=== PATIENT | female | born 1975 | race Two or more races ===

== ENCOUNTER 2017-04-27 01:10 | Emergency (ER) | payer MEDICAID ==
[~2017-04-27] VITALS: Ht 154.9 cm; Wt 67.6 kg
[2017-04-27 01:08] VITALS: BP 118/82
[~2017-04-27 01:10] MED LIST: ALBUTEROL SULF8.5 GM INH; ALBUTEROL SULFAT2 MG PO; PREDNISONE20 MG ORAL
--- NOTE | 2017-04-27 01:29 | Emergency Room Report ---
History of Present Illness General Chief Complaint: Asthma Source: Patient, EMS Present Illness HPI Patient presents with shortness of breath. This has been worsening now for 3 days. She's been using her inhaler but it hasn't been helping. She was admitted to the hospital in the past 2 months. At that time she received a flu shot. She's been coughing up clear material. She vomited tonight and it appeared to have some yellowish colored phlegm. She does not take prednisone at this time but she has taken it in the past. When she was hospitalized she also got magnesium and steroids. She feels she's not as bad as when she was hospitalized. She denies pain. Paramedics state she was severe when they arrived, but is getting better with Albuterol in the field. LNMP 2 weeks ago. No dysuria, nausea, rashes, headache, sore throat. No change in her bowels. Allergies: Coded Allergies: NO KNOWN DRUG ALLERGIES (Unverified Allergy, Unknown, 11/06/13) Patient History Past Medical History: see triage record Social History: Denies: smoking Social History Narrative works at [employer] Now: No Reviewed Nursing Documentation: PMH: Agreed, PSxH: Agreed Nursing Documentation-PMH Past Medical History: No History, Except For Hx Asthma: Yes Review of Systems All Other Systems: negative except mentioned in HPI Physical Exam Vital Signs Date Time Temp Pulse Resp B/P (MAP) Pulse Ox O2 Delivery O2 Flow Rate FiO2 04/27/17 01:04 97.9 78 19 118/82 99 Room Air Sp02 EP Interpretation: reviewed, normal General Appearance: GCS 15, non-toxic, mild distress Head: normocephalic Eyes: bilateral eye normal inspection, bilateral eye PERRL ENT: moist mucus membranes Neck: supple Respiratory: wheezing, expiration, inspiration Cardiovascular #1: regular rate, rhythm Cardiovascular #2: 2+ radial (R) Gastrointestinal: normal inspection, normal bowel sounds, non tender, decreased bowel sounds Musculoskeletal: normal inspection, normal range of motion, no calf tenderness Neurologic: alert, oriented x3, grossly normal Psychiatric: mood/affect normal Skin: normal inspection, warm/dry Medical Decision Making Diagnostic Impression: Primary Impression: Asthma Qualified Codes: J45.51 - Severe persistent asthma with (acute) exacerbation Additional Impressions: UTI (urinary tract infection) Qualified Codes: N30.00 - Acute cystitis without hematuria Eosinophilia Hypocalcemia Hypokalemia ER Course Patient presents with worsening of her asthma. It's been going on for 3 days. Is not her worse attack. She does feel that she needs steroids. She denies any fevers. Evaluation will be with chest x-ray and labs. She'll be treated with solu Medrol, Magnesium and breathing treatments. Improved with treatment. Calcium low. No prior h/o low calcium. Ordered ionized calcium. (Unable to perform.) No signs of low calcium. Slightly low potassium. + eosinophilia. Pyuria Antibiotics begun for UTI. Clear. She states she feels well enough to be treated at home. Patient stable for outpatient observation and treatment. Laboratory Tests Test 04/27/17 01:33 White Blood Count 7.5 K/UL (4.8-10.8) Red Blood Count 4.12 M/UL (4.20-5.40) L Hemoglobin 12.0 G/DL (12.0-16.0) Hematocrit 36.8 % (37.0-47.0) L Mean Corpuscular Volume 89 FL (80-99) Mean Corpuscular Hemoglobin 29.1 PG (27.0-31.0) Mean Corpuscular Hemoglobin Concent 32.5 G/DL (32.0-36.0) Red Cell Distribution Width 14.4 % (11.6-14.8) Platelet Count 251 K/UL (150-450) Mean Platelet Volume 7.7 FL (6.5-10.1) Neutrophils (%) (Auto) 53.7 % (45.0-75.0) Lymphocytes (%) (Auto) 29.1 % (20.0-45.0) Monocytes (%) (Auto) 5.7 % (1.0-10.0) Eosinophils (%) (Auto) 10.5 % (0.0-3.0) H Basophils (%) (Auto) 0.9 % (0.0-2.0) Urine Color Yellow Urine Appearance Slightly cloudy Urine pH 5 (4.5-8.0) Urine Specific Welches 1.030 (1.005-1.035) Urine Protein 1+ (NEGATIVE) H Urine Glucose (UA) Negative (NEGATIVE) Urine Ketones 2+ (NEGATIVE) H Urine Occult Blood 5+ (NEGATIVE) H Urine Nitrite Negative (NEGATIVE) Urine Bilirubin Negative (NEGATIVE) Urine Urobilinogen Normal MG/DL (0.0-1.0) Urine Leukocyte Esterase 3+ (NEGATIVE) H Urine RBC 30-40 /HPF (0 - 2) H Urine WBC 40-60 /HPF (0 - 2) H Urine Squamous Epithelial Cells Many /LPF (NONE/OCC) H Urine Bacteria Few /HPF (NONE) Urine HCG, Qualitative Negative Sodium Level 140 MMOL/L (136-145) Potassium Level 3.2 MMOL/L (3.5-5.1) L Chloride Level 107 MMOL/L (98-107) Carbon Dioxide Level 22 MMOL/L (21-32) Anion Gap 11 mmol/L (5-15) Blood Urea Nitrogen 19 mg/dL (7-18) H Creatinine 0.6 MG/DL (0.55-1.30) Estimate Glomerular Filtration Rate > 60 mL/min (>60) Glucose Level 126 MG/DL (74-106) H Calcium Level 7.7 MG/DL (8.5-10.1) L Magnesium Level 2.0 MG/DL (1.8-2.4) Total Bilirubin 0.3 MG/DL (0.2-1.0) Aspartate Amino Transferase (AST) 21 U/L (15-37) Alanine Aminotransferase (ALT) 18 U/L (12-78) Alkaline Phosphatase 93 U/L (46-116) Total Creatine Kinase 118 U/L (26-308) Total Protein 7.9 G/DL (6.4-8.2) Albumin 3.6 G/DL (3.4-5.0) Globulin 4.3 g/dL Albumin/Globulin Ratio 0.8 (1.0-2.7) L Rhythm Strip Diag. Results EP Interpretation: yes Rhythm: no PVC's, no ectopy, other - ST Last Vital Signs Date Time Temp Pulse Resp B/P (MAP) Pulse Ox O2 Delivery O2 Flow Rate FiO2 04/27/17 04:50 97.9 95 17 125/75 99 Room Air 21 Status: improved Disposition: HOME, SELF-CARE Condition: Improved Scripts Prednisone* (PREDNISONE*) 20 Mg Tablet 40 MG ORAL DAILY, #10 TAB Prov: Nilo Noonan M.D. 04/27/17 Albuterol Sulfate* (ALBUTEROL SULFATE MDI*) 8.5 Gm Hfa.aer.ad 2 PUFF INH Q6H, #1 EA 1 Refill Prov: Nilo Noonan M.D. 04/27/17 Cephalexin* (KEFLEX*) 500 Mg Capsule 500 MG ORAL EVERY 6 HOURS, #28 CAP Prov: Nilo Noonan M.D. 04/27/17 Nilo Noonan M.D. Apr 27, 2017 01:29
[2017-04-27] MEDS ORDERED: Ipratropium 0.02% Inh Soln 2.5ml UD HHN ONE (01:30)
[2017-04-27] MEDS ORDERED: Solu-MEDROL 125mg Inj IVP ONE (01:30)
[2017-04-27] MEDS: Albuterol ud Inhalation HHN SCH ×3 (01:41→02:10)
[2017-04-27 01:58] LABS: BASOPHILS % (AUTO) 0.9 % (0.0-2.0); EOSINOPHILS % (AUTO) 10.5 % (0.0-3.0); LYMPHOCYTES % (AUTO) 29.1 % (20.0-45.0); MEAN CORPUSCULAR HEMOGLOBIN 29.1 PG (27.0-31.0); MEAN CORPUSCULAR HGB CONC 32.5 G/DL (32.0-36.0); MEAN CORPUSCULAR VOLUME 89 FL (80-99); MEAN PLATELET VOLUME 7.7 FL (6.5-10.1); MONOCYTES % (AUTO) 5.7 % (1.0-10.0); NEUTROPHILS % (AUTO) 53.7 % (45.0-75.0); PLATELET COUNT 251 K/UL (150-450); RED BLOOD COUNT 4.12 M/UL (4.20-5.40); RED CELL DISTRIBUTION WIDTH 14.4 % (11.6-14.8); WHITE BLOOD COUNT 7.5 K/UL (4.8-10.8)
[2017-04-27 02:10] LABS: KETONES,URINE 2+ (NEGATIVE); LEUKOCYTE ESTERASE ,URINE 3+ (NEGATIVE); NITRITE,URINE NEGATIVE (NEGATIVE); PH,URINE 5 (4.5-8.0); PROTEIN,URINE 1+ (NEGATIVE); UROBILINOGEN,URINE NORMAL MG/DL (0.0-1.0)
[2017-04-27 02:11] LABS: ALANINE AMINOTRANSFERASE 18 U/L (12-78); ALBUMIN/GLOBULIN RATIO 0.8 (1.0-2.7); ANION GAP 11 mmol/L (5-15); ASPARTATE AMINO TRANSFERASE 21 U/L (15-37); CALCIUM 7.7 MG/DL (8.5-10.1); CARBON DIOXIDE 22 MMOL/L (21-32); CHLORIDE 107 MMOL/L (98-107); CREATININE 0.6 MG/DL (0.55-1.30); GLOMERULAR FILTRATION RATE > 60 mL/min (>60); POTASSIUM 3.2 MMOL/L (3.5-5.1); SODIUM 140 MMOL/L (136-145); TOTAL PROTEIN 7.9 G/DL (6.4-8.2)
[2017-04-27 02:21] LABS: APPEARANCE,URINE SLIGHTLY CLOUDY
[2017-04-27 02:22] LABS: BACTERIA,URINE FEW /HPF; RBC,URINE 30-40 /HPF (0 - 2); SQUAMOUS EPITHELIAL CELL,UR MANY /LPF (NONE/OCC); WBC,URINE 40-60 /HPF (0 - 2)
[2017-04-27] MEDS ORDERED: cefTRIAXone 1 GM in NS 55 ML IVPB ONE (02:45)
[2017-04-27 03:08] VITALS: BP 105/71
[2017-04-27] MEDS ORDERED: CEPHALEXIN500 MG ORAL (04:33)
[2017-04-27] MEDS ORDERED: ALBUTEROL SULF8.5 GM INH (04:33)
[2017-04-27] MEDS ORDERED: PREDNISONE20 MG ORAL (04:33)
[2017-04-27 04:50] VITALS: BP 98/54
--- NOTE | 2017-04-27 09:38 | Diagnostic Imaging Report ---
Indication: Reason For Exam: [id number] Technique: XRAY Chest 1v Comparison: None. Findings: The cardiomediastinal silhouette is normal. The lungs are clear. There is no evidence of pleural fluid. The bones are unremarkable. Impression: Normal chest.
== END 2017-04-27 04:50 | disposition home or self-care (01) ==
LOC: EDBD 01:10 → EMR 01:20
DX: J45.51 Severe persistent asthma with (acute) exacerbation (principal); N30.00 Acute cystitis without hematuria; D72.1 Eosinophilia; E83.51 Hypocalcemia; E87.6 Hypokalemia
CPT/HCPCS: 36415; 71010; 80053; 81003; 81025; 82550; 83735; 85025; 87086; 94640; 96361; 96365; 96366; 96375; 99284; J0696; J2930